=== PATIENT | male | born 1980 | race Caucasian/White ===

== ENCOUNTER 2016-09-07 19:26 | Emergency (ER) | payer OTHER, BC ==
[~2016-09-07] VITALS: Ht 170.2 cm; Wt 98.7 kg
[2016-09-07 19:31] VITALS: BP 156/104; PULSE 115; TEMP 37.5; O2SAT 94; Ht 170.2 cm; Wt 98.7 kg
[2016-09-07] MEDS ORDERED: IBUPROFEN 800 MG TAB PO STA (19:41)
[2016-09-07] MEDS ORDERED: DEXT1CAP36 PO (19:51)
--- NOTE | 2016-09-07 19:59 | DIAGNOSTIC IMAGING REPORT ---
RIGHT INDEX FINGER 3 VIEWS CLINICAL HISTORY: Pain status post trauma COMPARISON: None. DISCUSSION: There is a subtle fracture involving the tuft of the distal phalanx. There is no dislocation. There is an overlying soft tissue injury. IMPRESSION: Tiny chip fracture involving the tuft of the distal phalanx Electronically signed by: Mina Fine M.D. 09/07/2016 7:58 PM Dictated Date/Time: 09/07/2016 7:57 PM
[2016-09-07] MEDS ORDERED: CEPH500C PO (20:28)
--- NOTE | 2016-09-07 20:49 | EMERGENCY ROOM VISIT NOTE ---
History First contact with patient: 19:35 Chief Complaint: FINGER PAIN Stated Complaint: SMASHED R INDEX FINGER History of Present Illness The patient is a 35 year old male who presents to the Emergency Room with complaints of a crush injury to his right index finger. The patient reports that he was attempting to turn a manual cement next or when his finger got caught in the gear. The patient was able to extract the finger himself. He does report significant bleeding from the fingertip. He denies any injuries to the adjacent fingers or hand region. He rates his discomfort a 2 out of 10. The patient is [id number], and tetanus immunization is up-to-date. This injury happened at work just prior to arrival. Review of Systems 10 system review was performed and was negative except for pertinent positives and negatives as indicated in history of present illness Past Medical/Surgical History Medical Problems: (1) No significant past medical history Surgical Problems: (1) History of arthroscopic knee surgery Family History No significant family history Social History Smoking Status: Never Smoker Alcohol Use: occasionally Marital Status: Occupation Status: employed Current/Historical Medications Scheduled Cephalexin Monohydrate (Keflex), 500 MG PO QID Scheduled PRN Dextromethorphan-Phenylephrine (Day Time Multi-Symptom Co), 2 CAP PO DIRECTED PRN for Cough Allergies Coded Allergies: No Known Allergies (Unverified , 09/07/16) Physical Exam Vital Signs Date Time Temp Pulse Resp B/P Pulse Ox O2 Delivery O2 Flow Rate FiO2 09/07/16 19:31 37.5 115 18 156/104 94 Room Air Physical Exam CONSTITUTIONAL: Healthy and well nourished. Alert and oriented X 3 with positive affect. Patient does not appear in any acute distress. HEENT: Normocephalic, atraumatic. Pupils equal, round and reactive. NECK: Full active range of motion without discomfort. MUSCULOSKELETAL: Examination of the right index finger shows a corner distal nail avulsion. He has a mild laceration to the radial nail fold. There does not appear to be any deep laceration within the nailbed. Capillary refill is less than 2 seconds. No active bleeding. No tenderness to palpation of the DIP joint. There are no lacerations that will require suture repair. INTEGUMENTARY: No rash or other significant dermatologic conditions noted. NEUROLOGIC: Right index fingertip is hyperesthetic. Medical Decision & Procedures ER Provider Diagnostic Interpretation: My interpretation of right index finger x-rays shows a small chip fracture of the distal tuft. No dislocations of the IP joints. Radiologist report is as follows: RIGHT INDEX FINGER 3 VIEWS CLINICAL HISTORY: Pain status post trauma COMPARISON: None. DISCUSSION: There is a subtle fracture involving the tuft of the distal phalanx. There is no dislocation. There is an overlying soft tissue injury. IMPRESSION: Tiny chip fracture involving the tuft of the distal phalanx Medications Administered Medications (Trade) Dose Ordered Sig/Nj Route Start Time Stop Time Status Last Admin Dose Admin Ibuprofen (Motrin Tab) 800 mg NOW STAT PO 09/07/16 19:41 09/07/16 19:42 DC 09/07/16 19:51 800 MG ED Course Patient history and physical exam were performed. Nurse's notes were reviewed. The patient was administered ibuprofen at his request. He refused any stronger analgesics. X-rays of the right index finger shows a small chip fracture of the distal tuft. The patient will be treated as an open fracture with Keflex antibiotics. He was instructed to keep the wound clean and covered with an antibiotic ointment and dressing. He was instructed to follow-up with his Worker's Compensation approved orthopedic surgeon for further wound management. Ibuprofen or Tylenol as needed for pain. The patient refused any prescription analgesics, was happy with plan of care, and denied any significant pain at the time of discharge. Impression Primary Impression: Open fracture of phalanx of right index finger Additional Impression: Work related injury Departure Information Prescriptions Cephalexin Monohydrate (Keflex) 500 Mg Cap 500 MG PO QID for 7 Days, #28 CAP Prov: Martinez Mancia PA 09/07/16 Patient Instructions My [facility] Problem Qualifiers Primary Impression: Open fracture of phalanx of right index finger Encounter type: initial encounter Phalanx: distal Fracture alignment: nondisplaced Qualified Codes: S62.660B - Nondisplaced fracture of distal phalanx of right index finger, initial encounter for open fracture
== END 2016-09-07 20:49 | disposition home or self-care (01) ==
LOC: C.EDB 19:28 → C.EDD 20:49
DX: S62.660B Nondisplaced fracture of distal phalanx of right index finger, initial encounter for open fracture (principal); W31.82XA Contact with other commercial machinery, initial encounter; Y99.0 Civilian activity done for income or pay